=== PATIENT | female | born 1965 | race Caucasian/White ===

== ENCOUNTER 2016-09-23 07:57 | Day surgery (SDC) | payer BC ==
[~2016-09-23] VITALS: Ht 172.7 cm; Wt 72.8 kg
[~2016-09-23 07:57] MED LIST: BUSPAR5 MG PO; NORCO 325 MG-7.1 TAB PO; ORTHO TRI-CYCLE1 TAB PO; WELLBUTRIN 75MG75 MG PO
[2016-09-23 08:16] VITALS: BP 125/77; PULSE 84; TEMP 98.9
[2016-09-23] MEDS ORDERED: AMOXICILLIN875 MG PO (08:38)
[2016-09-23] MEDS ORDERED: ATIVAN 0.50.5 MG/TAB PO (08:39)
[2016-09-23] MEDS ORDERED: AMBIEN 5MG TABLE5 MG PO (08:39)
[2016-09-23] MEDS ORDERED: BUSPAR DIVIDOSE15 MG PO (08:40)
[2016-09-23] MEDS ORDERED: WELLBUTRIN SR200 MG PO (08:40)
[2016-09-23 09:40] VITALS: BP 100/71; PULSE 76; TEMP 98.6
[2016-09-23 09:55] VITALS: BP 99/68; PULSE 78
[2016-09-23 10:10] VITALS: BP 102/74; PULSE 69
== END 2016-09-23 10:35 | disposition home or self-care (01) ==
LOC: SDCO 07:57
DX: Z12.11 Encounter for screening for malignant neoplasm of colon (principal); D12.3 Benign neoplasm of transverse colon
CPT/HCPCS: J2250; J3010; J7030

== ENCOUNTER → 2018-06-22 | Outpatient (CLI) | payer BC ==
[~2018-06-22] MED LIST changes: +AMBIEN 5MG TABLE5 MG PO; +AMOXICILLIN875 MG PO; +ATIVAN 0.50.5 MG/TAB PO; +BUSPAR DIVIDOSE15 MG PO; +WELLBUTRIN SR200 MG PO
== END ==
LOC: MC.RAD 14:40
DX: Z12.31 Encounter for screening mammogram for malignant neoplasm of breast (principal)

== ENCOUNTER → 2021-11-30 | Outpatient (CLI) | payer OTHER | LOC: MC.RAD 16:17 | DX: Z12.31 Encounter for screening mammogram for malignant neoplasm of breast (principal) ==

== ENCOUNTER → 2024-02-28 | Outpatient (CLI) | payer OTHER | LOC: MC.RAD 07:35 | DX: Z12.31 Encounter for screening mammogram for malignant neoplasm of breast (principal) ==